=== PATIENT | male | born 1985 | race African-American/Black ===

== ENCOUNTER 2016-11-22 07:03 | Emergency (ER) | payer OTHER | END 2016-11-22 07:43 | disposition home or self-care (01) | LOC: D.ER 07:03 | DX: K08.89 Other specified disorders of teeth and supporting structures (principal); F17.200 Nicotine dependence, unspecified, uncomplicated ==

== ENCOUNTER 2017-12-26 13:49 | Emergency (ER) | payer OTHER | END 2017-12-26 14:45 | disposition left against medical advice (07) | LOC: D.ER 13:49 | DX: K92.0 Hematemesis (principal) ==

== ENCOUNTER 2018-11-20 14:27 | Emergency (ER) | payer OTHER ==
[~2018-11-20] VITALS: Ht 190.5 cm; Wt 86.4 kg
[2018-11-20 14:31] VITALS: BP 144/71; Ht 190.5 cm; Wt 86.4 kg
[2018-11-20 20:27] LABS: APPEARANCE CLEAR (CLEAR); BILIRUBIN NEGATIVE (NEGATIVE); COLOR YELLOW (YELLOW); GLUCOSE NEGATIVE (NEGATIVE); KETONE NEGATIVE (NEGATIVE); NITRITE NEGATIVE (NEGATIVE); PROTEIN NEGATIVE (NEGATIVE); UROBILINOGEN NORMAL (NORMAL)
== END 2018-11-20 16:00 | disposition left against medical advice (07) ==
LOC: D.ER 14:27
PROVIDERS: Emergency Medicine
DX: R10.9 Unspecified abdominal pain (principal)

== ENCOUNTER 2019-08-06 19:47 | Emergency (ER) | payer MEDICAID ==
[~2019-08-06] VITALS: Ht 185.4 cm; Wt 85.9 kg
[2019-08-06 20:00] VITALS: Ht 185.4 cm; Wt 85.9 kg
[2019-08-06] MEDS ORDERED: PREDNISONE20 MG PO (22:23)
[2019-08-06] MEDS ORDERED: NAPROSYN500 MG PO (22:23)
[2019-08-06 22:44] VITALS: BP 125/78
== END 2019-08-06 22:44 | disposition home or self-care (01) ==
LOC: D.ER 19:47
DX: M65.9 Synovitis and tenosynovitis, unspecified (principal)

== ENCOUNTER 2021-01-31 14:21 | Emergency (ER) | payer SELFPAY ==
[~2021-01-31] VITALS: Ht 185.4 cm; Wt 86.4 kg
[~2021-01-31 14:21] MED LIST: NAPROSYN500 MG PO; PREDNISONE20 MG PO
[2021-01-31 14:31] VITALS: BP 135/74; Ht 185.4 cm; Wt 86.4 kg
[2021-01-31] MEDS ORDERED: BUPRENORPHINE HC2 MG (14:35)
[2021-01-31 15:09] LABS: BASOPHILS 0.2 % (0-2); EOSINOPHILS 1.4 % (0-7); HEMATOCRIT 35.8 % (42.0-54.0); IMMATURE GRANULOCYTES 0.1 % (0-5); LYMPHOCYTE ABS# 3.12 10x3/uL (1.32-3.57); LYMPHOCYTES 36.4 % (15-50); MCHC 33.5 g/dL (31.0-37.0); MCV 89.5 fL (80.0-100.0); MEAN PLATELET VOLUME 9.9 fL (7.4-10.4); MONOCYTES 6.7 % (2-11); NEUTROPHIL ABS# 4.72 10x3/uL (1.78-5.38); NEUTROPHILS 55.2 % (40-80); PLATELET COUNT 196 10x3/uL (130-400); RDW 13.5 % (11.5-14.5); WBC 8.6 10x3/uL (4.8-10.8)
[2021-01-31 15:16] LABS: CALC OSMOLALITY 277 mosm/kg (275-300); CALCIUM 8.7 mg/dL (8.5-10.1); CARBON DIOXIDE 30.4 mmol/L (21.0-32.0); CHLORIDE - SERUM 105 mmol/L (98-107); CREATININE - SERUM 0.8 mg/dL (0.6-1.3); GLUCOSE 105 mg/dL (74-106); SODIUM 138 mmol/L (136-145); UREA NITROGEN 17 mg/dL (7-18); eGFR NON AFRICAN AMERICAN > 90 mL/min (90-120)
[2021-01-31 15:31] LABS: ALBUMIN 2.9 g/dL (3.4-5.0); ALKALINE PHOSPHATASE 55 U/L (30-120); ALT (SGPT) 39 U/L (10-68); BILIRUBIN - TOTAL 0.24 mg/dL (0.2-1.3); PRO BNP 109 pg/mL (0-125); PROTEIN - SERUM 6.4 g/dL (6.4-8.2)
== END 2021-01-31 17:38 | disposition left against medical advice (07) ==
LOC: D.ER 14:21
PROVIDERS: Emergency Medicine
DX: R60.0 Localized edema (principal)